=== PATIENT | female | born 1995 | race Caucasian/White ===

== ENCOUNTER 2018-03-28 23:51 | Emergency (ER) | payer MEDICAID ==
[~2018-03-28] VITALS: Ht 167.6 cm; Wt 77.0 kg
[2018-03-29] MEDS ORDERED: CEFTRIAXONE 1 G PREMIX 50 ML IV NR (00:15)
[2018-03-29] MEDS ORDERED: KETOROLAC 30MG/ML VIAL IV NR (00:15)
[2018-03-29] MEDS ORDERED: SODIUM CHLORIDE 0.9% 1000ML BAG (SEPSIS BOLUS) IV NR (00:15)
[2018-03-29] MEDS ORDERED: ONDANSETRON HCL 4MG/2ML INJ IV NR (00:15)
[2018-03-29 01:03] LABS: BASOPHILS % 0.8 % (0.0-2.0); EOSINOPHILS % 1.4 % (0.0-5.0); HEMATOCRIT. 37.3 % (36.0-48.0); LYMPHOCYTES % 17.9 % (20.0-50.0); MEAN CORPUSCULAR HEMOGLOBIN 24.9 pg (28.0-32.0); MEAN CORPUSCULAR VOLUME 77.7 fL (81.0-99.0); MEAN PLATELET VOLUME 8.5 fl (7.4-10.4); MONOCYTES % 6.7 % (2.0-8.0); NEUTROPHILS % 73.2 % (40.0-76.0); PLATELET 380 x1000/uL (130-400); RED BLOOD CELL COUNT 4.81 mill/uL (4.2-5.4); RED CELL DISTRIBUTION WIDTH 17.5 % (11.6-14.6)
[2018-03-29 01:10] LABS: CHLORIDE 105 mEq/L (98-107)
[2018-03-29 05:25] VITALS: BP 105/66
[2018-03-29 07:04] LABS: CLARITY URINE CLOUDY (CLEAR); COLOR URINE BLOODY (YELLOW)
[2018-03-29 07:05] LABS: KETONES URINE NEGATIVE (NEGATIVE); LEUKOCYTE ESTERASE URINE 2+ (NEGATIVE); NITRITE URINE NEGATIVE (NEGATIVE); OCCULT BLOOD URINE 3+ (NEGATIVE); PROTEIN URINE 1+ (NEGATIVE); SPECIFIC GRAVITY URINE 1.022 (1.005-1.030)
== END 2018-03-29 05:25 | disposition home or self-care (01) ==
LOC: ER 23:51 → CANBEDREQ 03-29 06:44
DX: N12 Tubulo-interstitial nephritis, not specified as acute or chronic (principal); Z87.442 Personal history of urinary calculi
CPT/HCPCS: 36415; 71045; 80053; 81003; 81025; 83605; 84145; 84484; 85025; 85610; 87040; 87086; 93005; 96361; 96365; 96375; 99284; J0696; J1885; J2405